=== PATIENT | female | born 1985 | race Caucasian/White ===

== ENCOUNTER 2016-12-15 01:28 | Emergency (ER) | payer OTHER ==
[~2016-12-15] VITALS: Ht 167.6 cm; Wt 59.9 kg
--- NOTE | 2016-12-15 01:37 | NUR ---
AMBULATED TO ROOM ACCOMPANIED BY SPOUSE HERE FOR "DIFFICULTY BREATHING SINCE YESTERDAY AND FEELING DIZZY". PT HYPERVENTILATING AND APPEARS ANXIOUS. RESP EVEN AND UNLABORED. UNABLE TO AUSCULTATE LUNGS BECAUSE PT STATES "IT HURTS TO TAKE IN A DEEP BREATH". NON DIAPHORETIC. RESP EVEN AND UNLABORED. PLACED ON MONITOR. MD NOTIFIED AND CARE PLAN DISCUSSED.
--- NOTE | 2016-12-15 02:28 | NUR ---
LAB AT BEDSIDE.
[2016-12-15] MEDS ORDERED: ALBUTEROL FS 2.5 MG/3 ML VIAL.NEB CONTNEB ONE (02:30)
[2016-12-15] MEDS ORDERED: ALBUTEROL FS 2.5 MG/3 ML VIAL.NEB ONE (02:32)
--- NOTE | 2016-12-15 02:32 | NUR ---
RECEIVING BREATHING TX.
[2016-12-15 02:37] LABS: BASOPHILS % (AUTO) 0.1 % (0.0-2.0); EOSINOPHILS % (AUTO) 0.1 % (0.0-6.0); HEMATOCRIT 34 % (33-45); HEMOGLOBIN 11.6 g/dL (11.5-14.8); LYMPHOCYTES # (AUTO) 1.9 /CMM (0.8-4.8); LYMPHOCYTES % (AUTO) 16.1 % (20.0-44.0); MEAN CORPUSCULAR HEMOGLOBIN 29 PG (26.0-33.0); MEAN CORPUSCULAR HGB CONC 35 g/dl (31.0-36.0); MEAN CORPUSCULAR VOLUME 85 fL (82-100); MONOCYTES # (AUTO) 0.5 /CMM (0.1-1.30); MONOCYTES % (AUTO) 4.2 % (2.0-12.0); NEUTROPHILS # (AUTO) 9.3 /CMM (1.8-8.9); NEUTROPHILS % (AUTO) 79.5 % (43.0-81.0); PLATELET COUNT (AUTO) 225 /CMM (150-450); RDW COEFFICIENT OF VARIATION 12.6 (11.5-15.0); RED BLOOD CELL COUNT(AUTO) 3.95 MIL/uL (4.0-5.2); WHITE BLOOD COUNT (AUTO) 11.8 K/uL (4.3-11.0)
--- NOTE | 2016-12-15 02:44 | NUR ---
18G RIGHT AC IV STARTED. BLOOD SAMPLE OBTAINED AND SENT TO LAB
[2016-12-15 02:47] LABS: CALCIUM, SERUM 8.7 mg/dL (8.5-10.1); CARBON DIOXIDE 24 mmol/L (21-32); CHLORIDE 107 mmol/L (98-107); CREATININE 0.5 mg/dL (0.6-1.3); GFR 143 mL/min (>60); GLUCOSE 90 mg/dL (74-106); POTASSIUM 3.2 mmol/L (3.5-5.1); SODIUM SERUM 140 mmol/L (136-145); UREA NITROGEN, BLOOD 8 mg/dL (7-18)
[2016-12-15 02:54] LABS: D-DIMER 0.49 mg/L(FEU (0.17-0.50); INR 0.89 (0.87-1.13); PROTHROMBIN TIME 9.5 SECS (9.5-12.7)
[2016-12-15 02:57] LABS: TROPONIN I < 0.017 ng/mL (0.00-0.056)
--- NOTE | 2016-12-15 03:47 | NUR ---
STATES "I FEEL A LITTLE BETTER". NAD NOTED. RESP EVEN AND UNLABORED. AWAITS MD REEVAL.
[2016-12-15 04:16] VITALS: BP 110/69
--- NOTE | 2016-12-15 04:21 | NUR ---
Patient discharged to home in stable condition. Written and verbal after care instructions given. Patient verbalizes understanding of instruction. IV removed. Catheter intact and site benign. Pressure and 4x4 applied to site. No bleeding noted. Ambulatory with a steady gait accompanied by spouse.
== END 2016-12-15 04:23 | disposition home or self-care (01) ==
LOC: ER 01:28
DX: O99.342 Other mental disorders complicating pregnancy, second trimester (principal); O99.512 Diseases of the respiratory system complicating pregnancy, second trimester; R06.00 Dyspnea, unspecified; F41.9 Anxiety disorder, unspecified; Z3A.22 22 weeks gestation of pregnancy
CPT/HCPCS: 36415; 71010; 80048; 84484; 85025; 85378; 85730; 93005; 94640; 99285; A4606; Z7610